=== PATIENT | female | born 1965 | race Caucasian/White ===

== ENCOUNTER → 2016-12-04 | Outpatient (CLI) | payer BC ==
[~2016-12-04] MED LIST: ALPR.25 PO; LISI10TA3 PO
--- NOTE | 2016-12-08 11:32 | HM ---
Date Performed: 12/04/2016 Time Performed: 09:32:00 HOOKUP DATE: 12/04/16 09:32:00 AM Deanne ANALYSIS START TIME: 12/04/2016 9:37:00 AM ANALYSIS END TIME: 12/05/2016 9:41:00 AM PATIENT AGE: 51 PATIENT HEIGHT PATIENT WEIGHT DRUG LIST PATIENT DIAGNOSIS: PALPITATIONS TEST NARRATIVE: The patient's average heart rate was 78 BPM. Heart rates greater than 120 B PM were noted < 1% of the time. No episodes of bradycardia were noted. No pauses exceeding 2.0 s econds were noted. 96 ventricular ectopics, which represented < 1% of the total beat count, were noted. The highest ventricular ectopic frequency occurred from 08:00 AM to 09:00 AM Fri. During thi s time 36 VE(s) occurred. Ventricular ectopics were observed as 96 isolated beat(s) only. No couple ts or runs were noted. Some of the ventricular beats occurred in bigeminal cycles. No supraventr icular ectopics were noted. No episodes of ST depression (defined as -1.0 mm or more) were noted in channel 1. No episodes of ST depression (defined as -1.0 mm or more) were noted in channel 2. No episodes of ST depression (defined as -1.0 mm or more) were noted in channel 3. TEST INTERPRETATION: Benign Holter Monitor Signed by : Major Chi
== END ==
LOC: HCAV 10:34
PROVIDERS: ATTEND Allergy & Immunology
DX: R00.2 Palpitations (principal)
CPT/HCPCS: 93225; 93226

== ENCOUNTER 2017-05-14 20:26 | Observation (INO) | payer BC ==
[~2017-05-14] VITALS: Ht 167.6 cm; Wt 61.0 kg
[2017-05-14] MEDS ORDERED: IOHEXOL 350 MG/ML 10 ML VIAL (for RAD DIAG) IVCONTRAST ONE (20:27)
[2017-05-14 20:30] VITALS: BP 115/77; PULSE 78; RESP 18; TEMP 99.4; O2SAT 96
[2017-05-14 20:40] VITALS: RESP 18; O2SAT 96
--- NOTE | 2017-05-14 20:44 | PD ---
HPI Chief Complaint: Chest Pain Time Seen by Provider: 20:43 Travel History International Travel<30 days: No Contact w/Intl Traveler<30days: No Traveled to known affect area: No History of Present Illness HPI 51-year-old female presents to the emergency department by private transportation for evaluation of epigastric and right upper quadrant abdominal pain that wraps to her right subscapular area. Patient states symptoms began after eating a chicken Caesar salad. Patient also had 3 beers. Patient states she drank apple spider vinegar without relief of symptoms. Patient did not take any antacids or aspirin prior to arrival to the emergency department. Patient does have history of hypertension that is managed with lisinopril. Patient denies history of his lipedema diabetes tobacco use or premature onset heart disease in her family. Patient's had no recent pleuritic chest pain shortness of breath referred neck jaw shoulder or arm pain. Patient denies any lower extremity pain or swelling. Patient's had no cough or hemoptysis. Patient states she's had similar less intense episodes before. Patient rates discomfort 5/10 in intensity. Patient at this time is unable to identify exacerbating or alleviating factors. Patient recently traveled to [place] last week and has returned home but no recent surgical procedure or protracted bedrest. No personal history family history of clotting disorder. PFSH Past Medical History Narrative Medical Hypertension anxiety varicose vein surgery; no tobacco use occasional alcohol use; nursing notes reviewed Cancer: No Cardiovascular Problems: Yes (HTN) Diminished Hearing: No Endocrine: No Genitourinary: No Hypertension: Yes Musculoskeletal: No Neurologic: No Psychiatric: No Reproductive: No Respiratory: No Past Surgical History Other Surgery: Yes (varicose veins) Social History Alcohol Use: Yes (OCC.) Tobacco Use: No (former cigs at teenage years) Substance Use: No Allergies-Medications (Allergen,Severity, Reaction): Coded Allergies: No Known Allergies (Verified , 05/14/17) Reported Meds & Prescriptions Reported Meds & Active Scripts Active Reported Xanax (Alprazolam) 0.25 Mg Tab 0.25 Mg PO Q8H PRN Lisinopril 10 Mg Tab 10 Mg PO DAILY Review of Systems Except as stated in HPI: all other systems reviewed are Neg General / Constitutional: No: Fever, Chills Eyes: No: Visual changes HENT: No: Headaches Cardiovascular: Positive: Chest Pain or Discomfort, No: Diaphoresis Respiratory: No: Cough, Shortness of Breath Gastrointestinal: Positive: Abdominal Pain (epigastric right upper quadrant), No: Nausea, Vomiting Genitourinary: No: Dysuria, Flank Pain Musculoskeletal: No: Myalgias, Arthralgias, Cramping, Edema, Pain Skin: No Rash Neurologic: No: Weakness Psychiatric: Positive: Anxiety Hematologic/Lymphatic: No: Lymph Node Enlargement Physical Exam Narrative GENERAL: Well-developed well-nourished female in no acute distress no respiratory distress; triage vital signs within normal range; GCS 15 SKIN: Warm and dry. HEAD: Normocephalic. EYES: No scleral icterus. No injection or drainage. NECK: Supple, trachea midline. No JVD or lymphadenopathy. CARDIOVASCULAR: Regular rate and rhythm without murmurs, gallops, or rubs. RESPIRATORY: Breath sounds equal bilaterally. No accessory muscle use. GASTROINTESTINAL: Abdomen soft, reproducible epigastric and right upper quadrant tenderness that exacerbates pain of presentation on palpation no clinical Kincaid sign, nondistended. MUSCULOSKELETAL: No cyanosis, or edema. Radial and dorsalis pedis pulses 2+ to palpation. BACK: Nontender without obvious deformity. No CVA tenderness. Data Data Last Documented VS Vital Signs Date Time Temp Pulse Resp B/P (MAP) Pulse Ox O2 Delivery O2 Flow Rate FiO2 05/14/17 23:10 70 16 89/58 (68) 98 Room Air 05/14/17 20:30 99.4 Orders Orders Electrocardiogram (05/14/17 20:38) Ckmb (Isoenzyme) Profile (05/14/17 20:38) Complete Blood Count With Diff (05/14/17 20:38) Magnesium (Mg) (05/14/17 20:38) Prothrombin Time / Inr (Pt) (05/14/17 20:38) Act Partial Throm Time (Ptt) (05/14/17 20:38) Troponin I (05/14/17 20:38) Chest, Single Ap (05/14/17 20:38) Ecg Monitoring (05/14/17 20:38) Iv Access Insert/Monitor (05/14/17 20:38) Oximetry (05/14/17 20:38) Aspirin Chew (Aspirin Chew) (05/14/17 20:45) Sodium Chloride 0.9% Flush (Ns Flush) (05/14/17 20:45) Ondansetron Inj (Zofran Inj) (05/14/17 20:45) Sodium Chlor 0.9% 1000 Ml Inj (Ns 1000 M (05/14/17 20:45) Hydromorphone Pf Inj (Dilaudid Pf Inj) (05/14/17 20:45) Alcohol (Ethanol) (05/14/17 20:38) Comprehensive Metabolic Panel (05/14/17 20:38) Lipase (05/14/17 20:38) Nitroglycerin Sl (Nitrostat Sl) (05/14/17 21:45) CKMB (05/14/17 20:35) CKMB% (05/14/17 20:35) Sodium Chlor 0.9% 1000 Ml Inj (Ns 1000 M (05/14/17 22:00) D-Dimer (05/14/17 20:35) Ct Abd/Pel W Iv Contrast(Rout) (05/14/17 ) Iohexol 350 Inj (Omnipaque 350 Inj) (05/14/17 20:27) Troponin I (05/14/17 23:26) Ckmb (Isoenzyme) Profile (05/14/17 23:26) Electrocardiogram (05/14/17 ) Sodium Chlor 0.9% 1000 Ml Inj (Ns 1000 M (05/14/17 23:30) Urinalysis - C+S If Indicated (05/14/17 23:26) Place In Observation (05/14/17 ) Vital Signs (Adult) Q4H (05/14/17 23:32) Activity Oob With Assistance (05/14/17 23:32) Research And Development Director / Telemetry .CONTINUOUS (05/14/17 23:32) Diet Npo (05/15/17 Breakfast) Sodium Chlor 0.9% 1000 Ml Inj (Ns 1000 M (05/14/17 23:32) Sodium Chloride 0.9% Flush (Ns Flush) (05/14/17 23:45) Sodium Chloride 0.9% Flush (Ns Flush) (05/15/17 09:00) Ondansetron Inj (Zofran Inj) (05/14/17 23:45) Comprehensive Metabolic Panel (05/15/17 06:00) Complete Blood Count With Diff (05/15/17 06:00) Scd Bilateral/Knee High NEVIN.BID (05/14/17 23:32) Morphine Inj (Morphine Inj) (05/14/17 23:45) Morphine Inj (Morphine Inj) (05/14/17 23:45) Naloxone Inj (Narcan Inj) (05/14/17 23:45) Admit Order (Ed Use Only) (05/14/17 23:33) Electrocardiogram (05/15/17 02:00) Electrocardiogram (05/15/17 08:00) Aspirin (Aspirin) (05/16/17 09:00) Labs Laboratory Tests Test 05/14/17 20:35 White Blood Count 10.4 TH/MM3 Red Blood Count 4.40 MIL/MM3 Hemoglobin 13.4 GM/DL Hematocrit 39.3 % Mean Corpuscular Volume 89.4 FL Mean Corpuscular Hemoglobin 30.4 PG Mean Corpuscular Hemoglobin Concent 34.0 % Red Cell Distribution Width 12.6 % Platelet Count 333 TH/MM3 Mean Platelet Volume 7.1 FL Neutrophils (%) (Auto) 56.5 % Lymphocytes (%) (Auto) 29.7 % Monocytes (%) (Auto) 12.2 % Eosinophils (%) (Auto) 1.2 % Basophils (%) (Auto) 0.4 % Neutrophils # (Auto) 5.9 TH/MM3 Lymphocytes # (Auto) 3.1 TH/MM3 Monocytes # (Auto) 1.3 TH/MM3 Eosinophils # (Auto) 0.1 TH/MM3 Basophils # (Auto) 0.0 TH/MM3 CBC Comment DIFF FINAL Differential Comment Prothrombin Time 10.8 SEC Prothromb Time International Ratio 1.0 RATIO Activated Partial Thromboplast Time 27.3 SEC D-Dimer Quantitative (PE/DVT) 0.22 MG/L FEU Blood Urea Nitrogen 16 MG/DL Creatinine 0.79 MG/DL Random Glucose 89 MG/DL Total Protein 7.2 GM/DL Albumin 3.6 GM/DL Calcium Level 8.6 MG/DL Magnesium Level 2.3 MG/DL Alkaline Phosphatase 61 U/L Aspartate Amino Transf (AST/SGOT) 14 U/L Alanine Aminotransferase (ALT/SGPT) 32 U/L Total Bilirubin 0.3 MG/DL Sodium Level 139 MEQ/L Potassium Level 3.7 MEQ/L Chloride Level 104 MEQ/L Carbon Dioxide Level 27.0 MEQ/L Anion Gap 8 MEQ/L Estimat Glomerular Filtration Rate 77 ML/MIN Total Creatine Kinase 116 U/L Creatine Kinase MB 2.0 NG/ML Troponin I LESS THAN 0.02 NG/ML Lipase 125 U/L Ethyl Alcohol Level LESS THAN 3 MG/DL MDM Medical Decision Making Medical Screen Exam Complete: Yes Emergency Medical Condition: Yes Medical Record Reviewed: Yes (May 2016 stress test no acute abnormalities identified; July 2016 nuclear stress test low-risk less than 1% acute abnormality identified) Interpretation(s) EKG: normal sinus rhythm rate [address] elevation ST depression or ectopy d-dimer: 0.22, not elevated coags: wnl troponin I: <0.02, not elevated; ck: 116 not elevated cbc: wnl cmp: grossly wnl serum alcohol: less than 3, not elevated CBC & BMP Diagram 05/14/17 20:35 Total Protein 7.2, Albumin 3.6, Calcium Level 8.6, Magnesium Level 2.3, Alkaline Phosphatase 61, Aspartate Amino Transf (AST/SGOT) 14 L, Alanine Aminotransferase (ALT/SGPT) 32, Total Bilirubin 0.3 Lipase: 125, not elevated Vital Signs Date Time Temp Pulse Resp B/P (MAP) Pulse Ox O2 Delivery O2 Flow Rate FiO2 05/14/17 22:00 69 16 92/54 (67) 98 Room Air 05/14/17 21:47 74 16 109/64 (79) 98 Room Air 05/14/17 21:42 16 05/14/17 20:40 18 96 Room Air 05/14/17 20:40 78 18 96 Room Air 05/14/17 20:30 99.4 78 18 115/77 (90) 96 Differential Diagnosis Atypical chest pain, ACS, MN, biliary colic, cholecystitis, gastritis, pancreatitis, peptic ulcer disease, aortic dissection Narrative Course Patient placed on pvc monitor IV access obtained specimens collected and sent for resulting EKG performed which shows sinus rhythm rate [address] elevation or ST depression or ectopy is noted Patient administered bolus of IV fluids, aspirin 324 mg chewed, Zofran 4 mg IV and Dilaudid 0.2 mg IV At 9:17 PM patient reports at this time that her pain is 0/10 intensity but now reports she has a pressure and points to the subxiphoid area so we will administer sublingual nitroglycerin 0.4 mg times one dose @ 10:00 PM after x 1 sl ntg 0.4 mg "pressure" 3-4/10 down from 4-5/10 "pressure "; 99/[address] abdomen and pelvis ordered to further evaluate abdominal pain which may be impacting or related to subxiphoid discomfort as well Patient returned from CT BP remains low --discomfort has improved; patient denies any abdominal pain and abdomen on re-examination is soft nontender to palpation; CT a/p no acute findings; second set of cardiac enzymes and ekg ordered; patient discussed with [facility] MD Dr Bar --accepted for OBS Cardiac risk: HTN, age 51; no dyslipidemia, no DM,no tobacco and no FH premature onset CAD Physician Communication Physician Communication discussed with Dr Bar OBS Diagnosis Primary Impression: Chest pain Additional Impressions: Hypotension due to medication Biliary colic symptom Admitting Information Admitting Physician Requests: Observation Marita Thomas MD May 14, 2017 20:44
[2017-05-14] MEDS ORDERED: ASPIRIN 81 MG CHEW TAB PO ONE (20:45)
[2017-05-14] MEDS ORDERED: SODIUM CHLOR 0.9% 1000 ML INJ 1,000 ML IV ONE ×3 (20:45→23:30)
[2017-05-14] MEDS ORDERED: SODIUM CHLORIDE 0.9% FLUSH 10 ML FLUSH IVF PRN (20:45)
[2017-05-14] MEDS ORDERED: HYDROmorphone HCL PF 1 MG/ML VIAL IV PUSH ONE (20:45)
[2017-05-14] MEDS ORDERED: ONDANSETRON HCL 4 MG/2 ML VIAL IV PUSH ONE (20:45)
[2017-05-14 21:21] LABS: AUTOMATED NEUTROPHIL # 5.9 TH/MM3 (1.8-7.7); BASOPHIL % 0.4 % (0.0-2.0); EOSINOPHIL # 0.1 TH/MM3 (0-0.4); EOSINOPHIL % 1.2 % (0.0-4.0); HEMATOCRIT 39.3 % (35.0-46.0); HEMO FLAGS DIFF FINAL; LYMPH % 29.7 % (9.0-44.0); LYMPHOCYTE # 3.1 TH/MM3 (1.0-4.8); MEAN CELL VOLUME 89.4 FL (80.0-100.0); MEAN CORPUSCULAR HEMOGLOBIN 30.4 PG (27.0-34.0); MONO % 12.2 % (0.0-8.0); NEUT % 56.5 % (16.0-70.0); PLATELET COUNT 333 TH/MM3 (150-450); RED CELL DISTRIBUTION WIDTH 12.6 % (11.6-17.2); WHITE BLOOD COUNT 10.4 TH/MM3 (4.0-11.0)
[2017-05-14 21:22] LABS: CHLORIDE 104 MEQ/L (98-107); POTASSIUM 3.7 MEQ/L (3.5-5.1); SODIUM (NA) 139 MEQ/L (136-145)
[2017-05-14 21:26] LABS: ANION GAP 8 MEQ/L (5-15); BLOOD UREA NITROGEN 16 MG/DL (7-18); MAGNESIUM 2.3 MG/DL (1.5-2.5)
[2017-05-14 21:27] LABS: APTT (PATIENT) 27.3 SEC (24.3-30.1); PROTHROMBIN TIME - PATIENT 10.8 SEC (9.8-11.6)
[2017-05-14 21:28] LABS: ALT (GPT) 32 U/L (10-53); AST (GOT) 14 U/L (15-37); GLOMERULAR FILTRATION RATE 77 ML/MIN (>89)
--- NOTE | 2017-05-14 21:29 | RADRPT ---
EXAM DATE/TIME: 05/14/2017 21:02 [facility] COMPARISON: No previous studies available for comparison. INDICATIONS : Right chest pain since this afternoon. MEDICAL HISTORY : Hypertension. SURGICAL HISTORY : None. ENCOUNTER: Initial ACUITY: 1 day PAIN SCORE: 7/10 LOCATION: Right chest FINDINGS: A single view of the chest demonstrates the lungs to be symmetrically aerated without evidence of mas s, infiltrate or effusion. The cardiomediastinal contours are unremarkable. Osseous structures are intact. CONCLUSION: No acute disease. Riccardo Guardado MD on May 14, 2017 at 21:27 Board Certified Radiologist. This report was verified electronically.
[2017-05-14 21:30] LABS: TOTAL BILIRUBIN ADULT 0.3 MG/DL (0.2-1.0)
[2017-05-14 21:31] LABS: ALKALINE PHOSPHATASE 61 U/L (45-117); CREATINE KINASE 116 U/L (26-192)
[2017-05-14 21:45] LABS: ALCOHOL LESS THAN 3 MG/DL (0-5)
[2017-05-14] MEDS ORDERED: NITROGLYCERIN 0.4 MG SL 25 TABS/BTL SL ONE (21:45)
[2017-05-14 21:47] VITALS: BP 109/64; PULSE 74; RESP 16; O2SAT 98
[2017-05-14 22:00] VITALS: BP 92/54; PULSE 69; RESP 16; O2SAT 98
[2017-05-14 22:17] VITALS: BP 91/62; PULSE 64; RESP 16; O2SAT 96
[2017-05-14 23:10] VITALS: BP 89/58; PULSE 70; RESP 16; O2SAT 98
--- NOTE | 2017-05-14 23:18 | RADRPT ---
EXAM DATE/TIME: 05/14/2017 22:49 [facility] COMPARISON: No previous studies available for comparison. INDICATIONS : Epigastric and right upper quadrant pain. IV CONTRAST: 96 cc Omnipaque 350 (iohexol) IV ORAL CONTRAST: No oral contrast ingested. RADIATION DOSE: 18.11 CTDIvol (mGy) MEDICAL HISTORY : Hypertension. SURGICAL HISTORY : None. ENCOUNTER: Initial ACUITY: 1 day PAIN SCALE: 5/10 LOCATION: Right upper quadrant TECHNIQUE: Volumetric scanning of the abdomen and pelvis was performed. Using automated exposure control and ad justment of the mA and/or kV according to patient size, radiation dose was kept as low as reasonably achievable to obtain optimal diagnostic quality images. DICOM format image data is available electro nically for review and comparison. FINDINGS: Lung bases are clear. Small cyst anterior and posterior liver. Mild fatty liver. Spleen, adrenals, ki dneys and pancreas unremarkable. No calcified gallstones. No biliary ductal dilatation. No free fluid. No bowel obstruction. No adenopathy. No acute bony abnormalities. CONCLUSION: 1. No acute findings on abdomen and pelvic CT. Fatty liver. Small cysts anterior and posterior liver. Tiny right renal cysts. Riccardo Guardado MD on May 14, 2017 at 23:14 Board Certified Radiologist. This report was verified electronically.
[2017-05-14] MEDS: SODIUM CHLOR 0.9% 1000 ML INJ 1,000 ML IV SCH (23:44)
[2017-05-14] MEDS ORDERED: ONDANSETRON HCL 4 MG/2 ML VIAL IVP PRN (23:45)
[2017-05-14] MEDS ORDERED: SODIUM CHLORIDE 0.9% FLUSH 10 ML FLUSH IV FLUSH PRN (23:45)
[2017-05-14] MEDS ORDERED: MORPHINE SULFATE 4 MG/ML INJ IV PUSH PRN ×2 (23:45)
[2017-05-14] MEDS ORDERED: NALOXONE HCL 0.4 MG/ML AMP IV PUSH PRN (23:45)
[2017-05-15] VITALS (19 sets, daily range): BP systolic 86–123; BP diastolic 53–81; PULSE 64–82; RESP 14–26; TEMP 97.6–98; O2SAT 94–97
[2017-05-15 00:50] LABS: BLOOD, URINE SMALL (NEG); GLUCOSE,URINE NEG (NEG); KETONE, URINE NEG (NEG); NITRITE,URINE NEG (NEG)
[2017-05-15 00:57] LABS: URINE COLOR YELLOW (YELLW/STRAW); WBC, URINE 0-2 /hpf (0-5)
[2017-05-15 00:58] LABS: COMMENT (UR) CULT NOT INDICATED; CULTURE IF INDICATED CULT NOT INDICATED
[2017-05-15 04:08] LABS: AUTOMATED NEUTROPHIL # 3.5 TH/MM3 (1.8-7.7); BASOPHIL % 0.3 % (0.0-2.0); EOSINOPHIL # 0.1 TH/MM3 (0-0.4); EOSINOPHIL % 1.4 % (0.0-4.0); HEMATOCRIT 36.3 % (35.0-46.0); HEMO FLAGS DIFF FINAL; LYMPH % 38.9 % (9.0-44.0); LYMPHOCYTE # 2.8 TH/MM3 (1.0-4.8); MEAN CELL VOLUME 89.3 FL (80.0-100.0); MEAN CORPUSCULAR HEMOGLOBIN 29.5 PG (27.0-34.0); MONO % 11.6 % (0.0-8.0); NEUT % 47.8 % (16.0-70.0); PLATELET COUNT 297 TH/MM3 (150-450); RED BLOOD COUNT 4.06 MIL/MM3 (4.00-5.30); RED CELL DISTRIBUTION WIDTH 12.6 % (11.6-17.2); WHITE BLOOD COUNT 7.2 TH/MM3 (4.0-11.0)
[2017-05-15 04:16] LABS: CHLORIDE 111 MEQ/L (98-107); POTASSIUM 3.8 MEQ/L (3.5-5.1); SODIUM (NA) 142 MEQ/L (136-145)
[2017-05-15 04:34] LABS: ALKALINE PHOSPHATASE 43 U/L (45-117); ALT (GPT) 23 U/L (10-53); ANION GAP 8 MEQ/L (5-15); AST (GOT) 10 U/L (15-37); BLOOD UREA NITROGEN 14 MG/DL (7-18); CALCIUM-PROTEIN CORRECTED 8.1 MG/DL (8.5-10.1); GLOMERULAR FILTRATION RATE 119 ML/MIN (>89); TOTAL BILIRUBIN ADULT 0.3 MG/DL (0.2-1.0)
[2017-05-15 04:35] LABS: CREATINE KINASE 81 U/L (26-192)
[2017-05-15] MEDS ORDERED: KETOROLAC TROMETHAMINE 60 MG/2 ML (IM) VIAL IM ONE (08:45)
[2017-05-15] MEDS ORDERED: ALUMINUM/MAGNESIUM/SIMETH 30 ML CUP PO ONE (08:45)
[2017-05-15] MEDS: SODIUM CHLOR 0.9% 1000 ML INJ 1,000 ML IV SCH (08:53)
[2017-05-15] MEDS ORDERED: PANTOPRAZOLE SOD 40 MG DELAYED RELEASE TAB PO SCH (09:00)
[2017-05-15] MEDS ORDERED: SODIUM CHLORIDE 0.9% FLUSH 10 ML FLUSH IV FLUSH SCH (09:00)
--- NOTE | 2017-05-15 09:04 | EKG ---
Date Performed: 05/15/2017 Time Performed: 03:58:39 PTAGE: 51 years EKG: Sinus rhythm NORMAL ECG PREVIOUS TRACING : 05/14/2017 20.33 No significant change from previous tracing noted. DOCTOR: Tom Ayala Interpretating Date/Time 05/15/2017 09:03:30
--- NOTE | 2017-05-15 09:51 | HHI.HP ---
[facility] Primary Care Physician Izabella Manley D.O. Admission Diagnosis chest pain; poss biliary colic; hypotension Diagnoses: (1) Chest pain Chief Complaint: Chest pain Travel History International Travel<30 Days: Yes Contact w/Intl Traveler <30 Da: Yes Name of Country Traveled to: [facility] LAST WEEK Traveled to Known Affected Are: No History of Present Illness Written by Marcial Carranza, acting as scribe for Dr. Shannon on 05/15/17 at 09:35. 51-year-old female with known history of hypertension, anxiety who presented to hospital because of chest discomfort. Patient states that she was in her normal state of health yesterday until approximately 6 PM. She did her normal exercise yesterday morning where she walks 4 miles and did 40 pushups. She does exercise 4 times a week. She did not have any discomfort at that time. The patient went to dinner last night and after eating the chicken Caesar salad and having 3 beers she started developing pain underneath her right breast at 6 PM the pain started intermittently wrap around her side into her back. Patient describes as a burning achy pain that progressively got worse and started developing a pressure sensation in her chest which she describes a 9/10 on a pain scale the patient tried to use some apple cider vinegar without any significant relief. The pain did not go away so she got up to walk around to see if that would help, however the pain did not subside. She states the pain was worse when she is sitting up and improves when she lays flat on her back. Her drove her to the ER and when she got into the van to come to the hospital the pain diminished, however when she got to the ER the pain got worse. Denied any nausea, vomiting, diaphoresis, shortness of breath, lightheadedness, dizziness. Patient was given morphine in the emergency department with complete resolution of her pain. Patient has had previous cardiac workups within the last year. She has had an exercise stress test as well as a Lexiscan done within the last year which both were negative as recommended by the ER physician that the patient be observed in the hospital for further evaluation and management. Review of Systems Cardiovascular: COMPLAINS OF: Chest pain Except as stated in HPI: all other systems reviewed are Neg Past Family Social History Past Medical History Hypertension Anxiety Past Surgical History Varicose vein removal Reported Medications Reported Meds & Active Scripts Active Reported Xanax (Alprazolam) 0.25 Mg Tab 0.25 Mg PO Q8H PRN Lisinopril 10 Mg Tab 10 Mg PO DAILY Allergies: Coded Allergies: No Known Allergies (Verified , 05/14/17) Family History Reviewed is significant for grandfather and father having heart disease, she believes that her father had stent placement Social History Patient did smoke a little when she was in high school, she does drink 2-3 tolu /beers every other night. She denies any illicit drug use Physical Exam Vital Signs Vital Signs Date Time Temp Pulse Resp B/P (MAP) Pulse Ox O2 Delivery O2 Flow Rate FiO2 05/15/17 06:00 67 05/15/17 05:00 69 05/15/17 04:00 69 05/15/17 03:00 97.6 71 18 95/55 (68) 94 05/15/17 02:00 70 05/15/17 01:00 97.6 64 18 105/68 (80) 97 05/15/17 01:00 73 05/15/17 01:00 97.6 73 18 95/55 (68) 94 05/15/17 00:35 05/15/17 00:05 67 16 97/61 (73) 97 Room Air 05/15/17 00:00 67 14 97 Room Air 05/14/17 23:10 70 16 89/58 (68) 98 Room Air 05/14/17 22:17 64 16 91/62 (72) 96 Room Air 05/14/17 22:00 69 16 92/54 (67) 98 Room Air 05/14/17 21:47 74 16 109/64 (79) 98 Room Air 05/14/17 21:42 16 05/14/17 20:40 18 96 Room Air 05/14/17 20:40 78 18 96 Room Air 05/14/17 20:30 99.4 78 18 115/77 (90) 96 Physical Exam GENERAL:NAD SKIN: Warm and dry. EYES: No scleral icterus. No injection or drainage. ENT: No nasal bleeding or discharge. Mucous membranes pink and moist. CARDIOVASCULAR: Regular rate and rhythm. no murmurs RESPIRATORY: No accessory muscle use. Clear to auscultation. Breath sounds equal bilaterally. GASTROINTESTINAL: Abdomen soft, non-tender, nondistended. NEUROLOGICAL: Awake and alert. No obvious cranial nerve deficits. No facial droop nor slurred speech noted. PSYCHIATRIC: Appropriate mood and affect; insight and judgment normal. MSK: Palpation of the lower sternum reproduces the exact pain that she was experiencing yesterday. As well as palpation of her right lower rib reproduces exact pain that she is experiencing that radiated to her back EXTREMITIES: No edema, pulses are equal bilaterally. No cyanosis or clubbing NEUROLOGY: Mood and affect appear appropriate. Laboratory Laboratory Tests Test 05/14/17 20:35 05/15/17 00:00 05/15/17 03:53 05/15/17 09:00 White Blood Count 10.4 7.2 Red Blood Count 4.40 4.06 Hemoglobin 13.4 12.0 Hematocrit 39.3 36.3 Mean Corpuscular Volume 89.4 89.3 Mean Corpuscular Hemoglobin 30.4 29.5 Mean Corpuscular Hemoglobin Concent 34.0 33.0 Red Cell Distribution Width 12.6 12.6 Platelet Count 333 297 Mean Platelet Volume 7.1 6.8 Neutrophils (%) (Auto) 56.5 47.8 Lymphocytes (%) (Auto) 29.7 38.9 Monocytes (%) (Auto) 12.2 11.6 Eosinophils (%) (Auto) 1.2 1.4 Basophils (%) (Auto) 0.4 0.3 Neutrophils # (Auto) 5.9 3.5 Lymphocytes # (Auto) 3.1 2.8 Monocytes # (Auto) 1.3 0.8 Eosinophils # (Auto) 0.1 0.1 Basophils # (Auto) 0.0 0.0 CBC Comment DIFF FINAL DIFF FINAL Differential Comment Prothrombin Time 10.8 Prothromb Time International Ratio 1.0 Activated Partial Thromboplast Time 27.3 D-Dimer Quantitative (PE/DVT) 0.22 Blood Urea Nitrogen 16 14 Creatinine 0.79 0.54 Random Glucose 89 88 Total Protein 7.2 5.6 Albumin 3.6 2.9 Calcium Level 8.6 7.3 Magnesium Level 2.3 Alkaline Phosphatase 61 43 Aspartate Amino Transf (AST/SGOT) 14 10 Alanine Aminotransferase (ALT/SGPT) 32 23 Total Bilirubin 0.3 0.3 Sodium Level 139 142 Potassium Level 3.7 3.8 Chloride Level 104 111 Carbon Dioxide Level 27.0 23.0 Anion Gap 8 8 Estimat Glomerular Filtration Rate 77 119 Total Creatine Kinase 116 81 Creatine Kinase MB 2.0 Troponin I LESS THAN 0.02 LESS THAN 0.02 Lipase 125 Ethyl Alcohol Level LESS THAN 3 Urine Color YELLOW Urine Turbidity SLIGHT Urine pH 6.0 Urine Specific [place] GREATER THAN 1.035 Urine Protein NEG Urine Glucose (UA) NEG Urine Ketones NEG Urine Occult Blood SMALL Urine Nitrite NEG Urine Bilirubin NEG Urine Leukocyte Esterase NEG Urine RBC 3-5 Urine WBC 0-2 Urine Squamous Epithelial Cells 6-8 Urine Bacteria NONE Microscopic Urinalysis Comment CULT NOT INDICATED Protein Corrected Calcium 8.1 Result Diagram: 05/15/1735205/15/17352 Rikirini VTE Risk Assessment Caprini VTE Risk Assessment: No/Low Risk (score <= 1) Caprini Risk Assessment Model Point Value = 1 Point Value = 2 Point Value = 3 Point Value = 5 Age 41-60 Minor surgery BMI > 25 kg/m2 Swollen legs Varicose veins or History of unexplained or recurrent spontaneous Oral contraceptives or hormone replacement Sepsis (< 1 month) Serious lung disease, including pneumonia (< 1 month) Abnormal pulmonary function Acute myocardial infarction Congestive heart failure (< 1 month) History of inflammatory bowel disease Medical patient at bed rest Age 61-74 Arthroscopic surgery Major open surgery (> 45 min) Laparoscopic surgery (> 45 min) Malignancy Confined to bed (> 72 hours) Immobilizing plaster cast Central venous access Age >= 75 History of VTE Family history of VTE Factor V Leiden Prothrombin [id number] Lupus anticoagulant Anticardiolipin antibodies Elevated serum homocysteine Heparin-induced thrombocytopenia Other congenital or acquired thrombophilia Stroke (< 1 month) Elective arthroplasty Hip, pelvis, or leg fracture Acute spinal cord injury (< 1 month) Prophylaxis Regimen Total Risk Factor Score Risk Level Prophylaxis Regimen 0-1 Low Early ambulation 2 Moderate Order ONE of the following: *Sequential Compression Device (SCD) *Heparin 5000 units SQ BID 3-4 Higher Order ONE of the following medications: *Heparin 5000 units SQ TID *Enoxaparin/Lovenox 40 mg SQ daily (WT < 150 kg, CrCl > 30 mL/min) *Enoxaparin/Lovenox 30 mg SQ daily (WT < 150 kg, CrCl > 10-29 mL/min) *Enoxaparin/Lovenox 30 mg SQ BID (WT < 150 kg, CrCl > 30 mL/min) AND/OR *Sequential Compression Device (SCD) 5 or more Highest Order ONE of the following medications: *Heparin 5000 units SQ TID (Preferred with Epidurals) *Enoxaparin/Lovenox 40 mg SQ daily (WT < 150 kg, CrCl > 30 mL/min) *Enoxaparin/Lovenox 30 mg SQ daily (WT < 150 kg, CrCl > 10-29 mL/min) *Enoxaparin/Lovenox 30 mg SQ BID (WT < 150 kg, CrCl > 30 mL/min) AND *Sequential Compression Device (SCD) Assessment and Plan Assessment and Plan Chest pain, atypical With the pain being reproducible on palpation and is identical to the pain that she was expressing last night, likely pain is musculoskeletal in nature vs GI. Unlikely cardiac in origin given she is very active and exercises alot. Thus far patient has been ruled out for any coronary event with serial cardiac enzymes that are negative, serial EKGs without any changes. Patient has undergone 2 different stress test to include exercise stress test and Lexiscan within the last 12 months which both were negative. Will give Toradol this time x1. Mylanta for possible acid reflux. Counseled patient on anti-inflammatories Obtain lipid panel Will have pt ambulate briskly and if asymptomatic with no worsening of symptoms , plan discharge. Hypertension Blood pressure stable this time Anxiety Continue home medications DVT prevention Low risk, early ambulation Discharge disposition Discharge home in stable condition Activity: Ad alec. Diet: Healthy heart diet Medications per medication reconciliation Follow-up primary medical doctor in one week This note was transcribed by ale Carranza. I, Elroy Shannon, personally performed the history, physical exam, and medical decision making; and confirmed the accuracy of information in the transcribed note. Authenticated by Elroy Shannon on 6:22 PM on 05/15. I also personally reviewed the chest x-ray and most recent EKG which show no acute abnormalities. Lipid panel is unremarkable, patient tolerated ambulation very well without any further chest pain, tolerated her meal as well. My clinical judgment that the patient does not have symptomatic coronary artery disease or acute coronary syndrome but rather musculoskeletal etiology for her pain which is much improved at this point with nonsteroidal anti-inflammatory drug treatment. Patient has met maximum benefit from hospitalization and is clinically stable for discharge. Problem Qualifiers (1) Chest pain: Qualified Codes: R07.9 - Chest pain, unspecified Marcial Carranza May 15, 2017 09:51 Elroy Shannon MD May 15, 2017 11:57
[2017-05-15 10:01] LABS: CREATINE KINASE 79 U/L (26-192)
--- NOTE | 2017-05-15 13:41 | HHI.DCPOC ---
Discharge Care Plan Diagnosis: (1) Chest pain Goals to Promote Your Health * To prevent worsening of your condition and complications * To maintain your health at the optimal level Directions to Meet Your Goals Take your medications as prescribed Follow your dietary instruction Follow activity as directed Keep your appointments as scheduled Take your immunizations and boosters as scheduled If your symptoms worsen call your PCP, if no PCP go to Urgent Care Center or Emergency Room Smoking is Dangerous to Your Health. Avoid second hand smoke Call the 24-hour hour crisis hotline for domestic abuse at Marcial Carranza May 15, 2017 13:41
[2017-05-15 13:58] LABS: HDL CHOLESTEROL 58.4 MG/DL (40.0-60.0)
--- NOTE | 2017-05-15 14:22 | EKG ---
Date Performed: 05/15/2017 Time Performed: 08:58:36 PTAGE: 51 years EKG: Sinus rhythm NORMAL ECG PREVIOUS TRACING : 05/15/2017 03.58 No change from previous tracing noted DOCTOR: Tom Ayala Interpretating Date/Time 05/15/2017 14:21:52
--- NOTE | 2017-05-15 14:24 | EKG ---
Date Performed: 05/14/2017 Time Performed: 20:33:42 PTAGE: 51 years EKG: Sinus rhythm POSSIBLE LEFT ATRIAL ENLARGEMENT BORDERLINE ECG PREVIOUS TRACING : 07/22/2016 19.20 No change from previous tracing noted DOCTOR: Tom Ayala Interpretating Date/Time 05/15/2017 14:23:16
[2017-05-15] MEDS ORDERED: PANT40TA3 PO (15:10)
[2017-05-16] MEDS ORDERED: ASPIRIN 325 MG TAB PO SCH (09:00)
== END 2017-05-15 16:45 | disposition home or self-care (01) ==
LOC: PHED 20:26 → PHEDA 23:37 → PHICU 05-15 00:39
PROVIDERS: ADMIT Hospitalist; ATTEND Hospitalist
DX: R07.89 Other chest pain (principal); I10 Essential (primary) hypertension; R10.13 Epigastric pain; R10.11 Right upper quadrant pain; I95.2 Hypotension due to drugs; N28.1 Cyst of kidney, acquired; K76.0 Fatty (change of) liver, not elsewhere classified; F41.9 Anxiety disorder, unspecified; Z79.899 Other long term (current) drug therapy; Z87.891 Personal history of nicotine dependence
CPT/HCPCS: 71010; 74177; 80053; 80061; 80307; 81001; 82550; 82552; 83690; 83735; 84484; 85025; 85379; 85610; 85730; 93005; 96361; 96372; 96374; 96375; 99285; G0378; J1170; J1885; J2405; J7030; Q9967

== ENCOUNTER 2017-07-24 01:40 | Emergency (ER) | payer BC ==
[~2017-07-24] VITALS: Ht 167.6 cm; Wt 89.1 kg
[~2017-07-24 01:40] MED LIST changes: +PANT40TA3 PO
[2017-07-24 01:47] VITALS: BP 122/74; PULSE 75; RESP 18; TEMP 98.1; O2SAT 96
[2017-07-24 02:57] VITALS: BP 122/74; PULSE 75; RESP 18; TEMP 98.1; O2SAT 96
[2017-07-24 03:15] VITALS: BP 117/75; PULSE 73; RESP 18; O2SAT 97
[2017-07-24] MEDS ORDERED: ALUMINUM/MAGNESIUM/SIMETH 30 ML CUP PO ONE (03:45)
[2017-07-24] MEDS ORDERED: LIDOCAINE VISCOUS 2% SOLN 15 ML UDC SWISH-SWAL ONE (03:45)
--- NOTE | 2017-07-24 03:57 | PD ---
HPI Chief Complaint: GI Complaint Time Seen by Provider: 02:52 Travel History International Travel<30 days: No Contact w/Intl Traveler<30days: No Traveled to known affect area: No History of Present Illness HPI Pt was awoken 4 times last night after eating pizza close to bedtime. She had burning on her right breast that radiated up towards her throat. It went away after she set up then it came back and went away and came back and then finally she woke up her and they came to the ER. She did not take anything to make it better she had an episode a year ago and they thought it could be gallbladder involvement of the CAT scan did not find any findings. She has had no gastric problems since then. The pain was burning it radiated from the left breast up towards the throat. And she took nothing to make it better she did not see another doctor for this complaint. PFSH Past Medical History Anxiety: Yes Cancer: No Cardiovascular Problems: Yes (HTN) Chest Pain: Yes Diminished Hearing: No Endocrine: No Genitourinary: No Hypertension: Yes Implanted Vascular Access Dvce: Yes Musculoskeletal: No Neurologic: No Psychiatric: No Reproductive: No Respiratory: No Immunizations Current: Yes Influenza Vaccination: No ?: Not LMP: 06/26/2017 : 2 Para: 2 Past Surgical History Other Surgery: Yes (varicose veins,L leg) Social History Alcohol Use: Yes (OCC.) Tobacco Use: No (former cigs at teenage years) Substance Use: No Allergies-Medications (Allergen,Severity, Reaction): Coded Allergies: No Known Allergies (Verified Adverse Reaction, Unknown, 07/24/17) Reported Meds & Prescriptions Reported Meds & Active Scripts Active Pepcid (Famotidine) 20 Mg Tab 20 Mg PO BID Lidocaine Viscous Liq 2 % Liqd 5 Ml SWISH-SWAL QID PRN Reported Xanax (Alprazolam) 0.25 Mg Tab 0.25 Mg PO Q8H PRN Lisinopril 10 Mg Tab 10 Mg PO DAILY Review of Systems Except as stated in HPI: all other systems reviewed are Neg Cardiovascular: Positive: Chest Pain or Discomfort (burning in the right breast to throat) Gastrointestinal: Positive: Abdominal Pain Physical Exam Narrative GENERAL: NO APPARENT CURRNET DISTRESS NON TOXIC APPEARING SKIN: Warm and dry. HEAD: Atraumatic. Normocephalic. EYES: Pupils equal and round. No scleral icterus. No injection or drainage. ENT: No nasal bleeding or discharge. Mucous membranes pink and moist. NECK: Trachea midline. No JVD. CARDIOVASCULAR: Regular rate and rhythm. RESPIRATORY: No accessory muscle use. Clear to auscultation. Breath sounds equal bilaterally. GASTROINTESTINAL: Abdomen soft,SLIGHT TENDERNESS RUQ-tender, nondistended. Hepatic and splenic margins not palpable. MUSCULOSKELETAL: Extremities without clubbing, cyanosis, or edema. No obvious deformities. NEUROLOGICAL: Awake and alert. No obvious cranial nerve deficits. Motor grossly within normal limits. Five out of 5 muscle strength in the arms and legs. Normal speech. PSYCHIATRIC: Appropriate mood and affect; insight and judgment normal. Data Data Last Documented VS Vital Signs Date Time Temp Pulse Resp B/P (MAP) Pulse Ox O2 Delivery O2 Flow Rate FiO2 07/24/17 04:44 71 18 115/71 (86) 98 07/24/17 03:15 Room Air 07/24/17 02:57 98.1 Orders Orders Al-Mag Hy-Si 40-40-4 Mg/Ml Liq (Mag-Al P (07/24/17 03:45) Lidocaine 2% Viscous (Xylocaine 2% Visco (07/24/17 03:45) Electrocardiogram (07/24/17 ) MDM Medical Decision Making Medical Screen Exam Complete: Yes Emergency Medical Condition: Yes Differential Diagnosis GERD VS GB DISEASE VS PANCREATITIS , ABDO NOS OTHER Narrative Course Patient is feeling better after the GI cocktail viscous lidocaine and Maalox bedside point of care ultrasound of gallbladder shows no stones no cholecystic fluid pericholecystic fluid and common bile duct measures normal diagnosis is gastritis relieved with GI cocktail Procedures Procedure Narrative POC GB BEDSIDE NO SIGNS OF GALLSTONES NOR CHOLECYSTITIS CBD NL Diagnosis Primary Impression: GERD (gastroesophageal reflux disease) Qualified Codes: K21.9 - Gastro-esophageal reflux disease without esophagitis Patient Instructions: Gastritis (ED), General Instructions Scripts Famotidine (Pepcid) 20 Mg Tab 20 MG PO BID, #20 TAB 0 Refills Prov: Ramos Ascencio MD 07/24/17 Lidocaine Viscous Liq (Lidocaine Viscous Liq) 2 % Liqd 5 ML SWISH-SWAL QID Y for PAIN, #1 BOTTLE 0 Refills Prov: Ramos Ascencio MD 07/24/17 Disposition: 01 DISCHARGE HOME Condition: Good Ramos Ascencio MD Jul 24, 2017 03:57
[2017-07-24 04:44] VITALS: BP 115/71
[2017-07-24] MEDS ORDERED: LIDO1SOL8 SWISH-SWAL (04:51)
[2017-07-24] MEDS ORDERED: FAMO1TAB37 PO (04:51)
--- NOTE | 2017-07-24 22:47 | EKG ---
Date Performed: 07/24/2017 Time Performed: 02:04:36 PTAGE: 52 years EKG: Sinus rhythm NORMAL ECG PREVIOUS TRACING : 05/15/2017 08.58 Compared to prior tracing no significant change DOCTOR: Henry Milian Interpretating Date/Time 07/24/2017 22:47:09
== END 2017-07-24 04:45 | disposition home or self-care (01) ==
LOC: PHED 01:40
DX: K21.9 Gastro-esophageal reflux disease without esophagitis (principal); F41.9 Anxiety disorder, unspecified; I10 Essential (primary) hypertension; Z79.899 Other long term (current) drug therapy
CPT/HCPCS: 93005

== ENCOUNTER 2017-11-21 06:59 | Emergency (ER) | payer BC ==
[~2017-11-21] VITALS: Ht 165.1 cm; Wt 91.6 kg
[~2017-11-21 06:59] MED LIST changes: +FAMO1TAB37 PO; +LIDO1SOL8 SWISH-SWAL; -PANT40TA3 PO
[2017-11-21 07:06] VITALS: BP 137/83; PULSE 89; RESP 16; TEMP 98.3; O2SAT 97
[2017-11-21 07:20] LABS: BILIRUBIN, URINE NEG (NEG); BLOOD, URINE LARGE (NEG); GLUCOSE,URINE NEG (NEG); KETONE, URINE NEG (NEG); NITRITE,URINE NEG (NEG); URINE LEUKOCYTE ESTERASE SMALL (NEG)
[2017-11-21 07:21] LABS: URINE COLOR STRAW (YELLW/STRAW)
--- NOTE | 2017-11-21 07:24 | PD ---
HPI Chief Complaint: Complaint Time Seen by Provider: 07:23 Travel History International Travel<30 days: No Contact w/Intl Traveler<30days: No Traveled to known affect area: No History of Present Illness HPI Patient presents with complaints of urinary frequency and pain since 5 AM this morning. Denies hematuria. Denies nausea vomiting diarrhea or fever. Denies . PFSH Past Medical History Anxiety: Yes Cancer: No Cardiovascular Problems: Yes (HTN) Chest Pain: Yes Diminished Hearing: No Endocrine: No Genitourinary: No Hypertension: Yes Implanted Vascular Access Dvce: Yes Musculoskeletal: No Neurologic: No Psychiatric: No Reproductive: No Respiratory: No Immunizations Current: Yes ?: Not Menopausal: Yes : 2 Para: 2 Past Surgical History Other Surgery: Yes (varicose veins,L leg) Social History Alcohol Use: Yes (OCC.) Tobacco Use: No (former cigs at teenage years) Substance Use: No Allergies-Medications (Allergen,Severity, Reaction): Coded Allergies: No Known Allergies (Verified Adverse Reaction, Unknown, 07/24/17) Reported Meds & Prescriptions Reported Meds & Active Scripts Active Reported Lisinopril 10 Mg Tab 10 Mg PO DAILY Review of Systems General / Constitutional: No: Fever Eyes: No: Visual changes HENT: No: Headaches Cardiovascular: No: Chest Pain or Discomfort Respiratory: No: Shortness of Breath Gastrointestinal: No: Abdominal Pain Genitourinary: Positive: Urgency, Frequency, Dysuria Musculoskeletal: No: Pain Skin: No Rash Neurologic: No: Weakness Psychiatric: No: Depression Endocrine: No: Polydipsia Hematologic/Lymphatic: No: Easy Bruising Physical Exam Narrative GENERAL: Well-nourished, well-developed patient. SKIN: Focused skin assessment warm/dry. HEAD: Normocephalic. EYES: No scleral icterus. No injection or drainage. NECK: Supple, trachea midline. No JVD or lymphadenopathy. CARDIOVASCULAR: Regular rate and rhythm without murmurs, gallops, or rubs. RESPIRATORY: Breath sounds equal bilaterally. No accessory muscle use. GASTROINTESTINAL: Abdomen soft, non-tender, nondistended. MUSCULOSKELETAL: No cyanosis, or edema. BACK: Nontender without obvious deformity. No CVA tenderness. Data Data Last Documented VS Vital Signs Date Time Temp Pulse Resp B/P (MAP) Pulse Ox O2 Delivery O2 Flow Rate FiO2 11/21/17 07:06 98.3 89 16 137/83 (101) 97 Orders Orders Urinalysis - C+S If Indicated (11/21/17 07:08) Urine Culture (11/21/17 07:10) Phenazopyridine (Pyridium) (11/21/17 08:00) Labs Laboratory Tests Test 11/21/17 07:10 Urine Collection Type CLEAN CATCH Urine Color STRAW Urine Turbidity CLEAR Urine pH 6.0 Urine Specific [place] LESS/EQUAL 1.005 Urine Protein NEG mg/dL Urine Glucose (UA) NEG mg/dL Urine Ketones NEG mg/dL Urine Occult Blood LARGE Urine Nitrite NEG Urine Bilirubin NEG Urine Urobilinogen 0.2 MG/DL Urine Leukocyte Esterase SMALL Urine RBC 4-9 /hpf Urine WBC 20-24 /hpf Urine Squamous Epithelial Cells 0-5 /hpf Urine Amorphous Sediment FEW Urine Bacteria FEW /hpf Microscopic Urinalysis Comment CULTURE INDICATED Urine Collection Time 0710 [facility] Medical Decision Making Medical Screen Exam Complete: Yes Emergency Medical Condition: Yes Differential Diagnosis UTI, cystitis, nephritis, urosepsis Narrative Course Assessment plan discussed patient bedside Diagnosis Primary Impression: UTI (urinary tract infection) Qualified Codes: N39.0 - Urinary tract infection, site not specified; R31.9 - Hematuria, unspecified Patient Instructions: General Instructions Additional Instructions: Encourage fluids and cranberry supplement. Follow-up with PCP. Return to emergency room with any onset of new symptoms. Med/Other Pt SpecificInfo: Prescription(s) given Scripts Phenazopyridine (Pyridium) 100 Mg Tab 100 MG PO BID Y for DYSURIA, #6 TAB 0 Refills Prov: Naseem Shultz MD 11/21/17 Ciprofloxacin (Cipro) 250 Mg Tab 250 MG PO BID for Infection, #6 TAB 0 Refills Prov: Naseem Shultz MD 11/21/17 Disposition: 01 DISCHARGE HOME Condition: Good Naseem Shultz MD Nov 21, 2017 07:24
[2017-11-21 07:29] LABS: AMORPHOUS SEDIMENT, URINE FEW; BACTERIA, URINE FEW /hpf; SQUAMOUS EPITHELIAL CELL URINE 0-5 /hpf (0-5)
[2017-11-21] MEDS ORDERED: PHENAZOPYRIDINE HCL 200 MG TAB PO ONE (08:00)
[2017-11-21] MEDS ORDERED: CIPR250T52 PO (08:01)
[2017-11-21] MEDS ORDERED: PHEN0.4T PO (08:01)
== END 2017-11-21 08:13 | disposition home or self-care (01) ==
LOC: PHEFT 06:59
DX: N39.0 Urinary tract infection, site not specified (principal); I10 Essential (primary) hypertension; F41.9 Anxiety disorder, unspecified; Z87.891 Personal history of nicotine dependence
CPT/HCPCS: 81001; 87086; 99283